=== PATIENT | male | born 1985 | race Caucasian/White ===

== ENCOUNTER 2022-02-16 14:21 | Emergency (ER) | payer OTHER ==
[~2022-02-16] VITALS: Ht 180.3 cm; Wt 95.2 kg
[2022-02-16] MEDS ORDERED: HYDROCODON-ACE1 EA11 PO (15:12)
[2022-02-18] MEDS ORDERED: IBU800 MG PO (09:57)
[2022-02-18] MEDS ORDERED: NEURONTIN300 MG PO (12:04)
[2022-02-19] MEDS ORDERED: VITAMIN D210 MCG PO (07:51)
[2022-02-19] MEDS ORDERED: ACETAMINOPHEN325 M1 PO (07:51)
[2022-02-19] MEDS ORDERED: VITAMIN C100 MG PO (07:52)
[2022-02-19] MEDS ORDERED: HYDROCODON-ACE1 EA11 PO (10:01)
== END 2022-02-16 16:11 | disposition home or self-care (01) ==
LOC: ED 14:21
DX: S82.852A Displaced trimalleolar fracture of left lower leg, initial encounter for closed fracture (principal); Z88.0 Allergy status to penicillin; X50.1XXA Overexertion from prolonged static or awkward postures, initial encounter; Y93.51 Activity, roller skating (inline) and skateboarding
CPT/HCPCS: 29515; 73610; 99283-25; A9270